=== PATIENT | male | born 1965 | race Hispanic/Latino ===

== ENCOUNTER → 2020-02-26 | Outpatient (CLI) | payer BC ==
--- NOTE | 2020-02-26 16:56 | Diagnostic Imaging Report ---
Testicular ultrasound, with Doppler examination. History: Spermatocele. Comparison: None available. Discussion: Evaluation of the scrotum was performed in the transverse and longitudinal planes. Color Doppler and spectral wave form analysis was performed bilaterally. The testes are normal in size and echogenicity bilaterally, measuring 4.4 x 3.0 x 3.1 cm on the right and 4.4 x 2.2 x 2.6 cm on the left. There is no evidence of a mass. Normal and symmetrical flow is present within both testes. There is a minimal amount of surrounding fluid bilaterally. The right epididymis contains an oval nearly anechoic structure with low level echoes, measuring 2.3 x 2.6 x 2.7 cm. The left epididymal head contains a 0.5 cm cystic structure. IMPRESSION: 1. Bilateral epididymal head cysts versus spermatoceles, right larger than left. 2. Normal appearance of the testes bilaterally. Signed by: Antwan Bellamy on 02/26/2020 4:52 PM
== END ==
LOC: US 15:22
PROVIDERS: ATTEND Urology
DX: N43.40 Spermatocele of epididymis, unspecified (principal)
CPT/HCPCS: 76870